=== PATIENT | male | born 1975 | race Caucasian/White ===

== ENCOUNTER 2018-08-01 15:40 | Inpatient (IN) ==
[2018-08-01] MEDS ORDERED: Morphine Inj 4 MG/ML Vial ONE (15:50)
[2018-08-01] MEDS ORDERED: HYDROmorphone PF Inj 1 MG/ML Ampul ONE (16:01)
[2018-08-01 16:08] LABS: Baso # (Auto) 0.1 th/mm3 (0.0-0.2); Eos # (Auto) 0.6 th/mm3 (0.0-0.4); Eos % (Auto) 4.6 % (0.0-4.0); Hematocrit 46.4 % (39.0-51.0); Hemoglobin 15.8 gm/dL (13.0-17.0); Lymph % (Auto) 24.1 % (9.0-44.0); Mean Corpuscular HGB Conc 33.9 % (32.0-36.0); Mean Corpuscular Hemoglobin 30.9 pg (27.0-34.0); Mean Corpuscular Volume 91.1 fL (80.0-100.0); Mean Platelet Volume 7.6 fL (7.0-11.0); Mono # (Auto) 0.7 th/mm3 (0.0-0.9); Mono % (Auto) 5.8 % (0.0-8.0); Neut # (Auto) 7.9 th/mm3 (1.8-7.7); Neut % (Auto) 64.5 % (16.0-70.0); Platelet Count 358 th/mm3 (150-450); Red Cell Distribution Width 14.4 % (11.6-17.2); White Blood Count 12.3 th/mm3 (4.0-11.0)
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
[2018-08-01 16:22] LABS: Activated Partial Thrombo Time 23.1 sec (23.4-31.7); Prothrombin Time 10.2 sec (9.8-11.6)
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
[2018-08-01] MEDS ORDERED: fentaNYL Citrate Inj 100 MCG/2 ML Ampul ONE ×2 (16:36→16:56)
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
[2018-08-01] MEDS ORDERED: Lidocaine PF 1% Inj 30 ML Vial ONE (16:54)
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
[2018-08-01] MEDS: HYDROmorphone PF Inj 1 MG/ML Ampul IV.PUSH PRN (20:45)
[2018-08-01] MEDS: Senna/Docusate Sodium 8.6/50 MG Tablet PO SCH (21:00)
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
[2018-08-01] MEDS: Multivitamin Inj 10 ML, Thiamine Inj 100 MG, Folic Acid Inj 1 MG in Sodium Chlor 0.9% I... IV.SIG SCH (21:25)
[2018-08-01] MEDS: Pantoprazole Inj 40 MG Vial IV.PUSH SCH (21:34)
[2018-08-01] MEDS: Sod Chloride 0.9% Inj 1,000 ML IV.CONT SCH (21:38)
[2018-08-01] MEDS: Methocarbamol 500 MG Tablet PO SCH (22:00)
[2018-08-02] MEDS: HYDROmorphone PF Inj 1 MG/ML Ampul IV.PUSH PRN ×6 (02:10→22:26)
[2018-08-02] MEDS ORDERED: Chlorhexidine Gluconate 2% 1 Pack (2 Cloths) TOPICAL PRN (04:00)
[2018-08-02] MEDS: Chlorhexidine Gluconate 2% 1 Pack (2 Cloths) TOPICAL SCH (04:04)
[2018-08-02] MEDS: Sod Chloride 0.9% Inj 1,000 ML IV.CONT SCH ×3 (04:04→20:02)
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
[2018-08-02] MEDS: Methocarbamol 500 MG Tablet PO SCH ×3 (06:23→22:26)
[2018-08-02 06:32] LABS: Baso % (Auto) 0.3 % (0.0-2.0); Eos # (Auto) 0.1 th/mm3 (0.0-0.4); Eos % (Auto) 1.1 % (0.0-4.0); Hematocrit 41.8 % (39.0-51.0); Hemoglobin 14.2 gm/dL (13.0-17.0); Lymph # (Auto) 1.2 th/mm3 (1.0-4.8); Lymph % (Auto) 11.1 % (9.0-44.0); Mean Corpuscular HGB Conc 33.9 % (32.0-36.0); Mean Corpuscular Hemoglobin 30.7 pg (27.0-34.0); Mean Corpuscular Volume 90.4 fL (80.0-100.0); Mean Platelet Volume 7.7 fL (7.0-11.0); Mono % (Auto) 8.7 % (0.0-8.0); Neut # (Auto) 8.7 th/mm3 (1.8-7.7); Neut % (Auto) 78.8 % (16.0-70.0); Platelet Count 268 th/mm3 (150-450); Red Blood Count 4.62 mil/mm3 (4.50-5.90); Red Cell Distribution Width 14.1 % (11.6-17.2)
[2018-08-02 06:58] LABS: Albumin 3.1 g/dL (3.4-5.0); Anion Gap 5 meq/L (5-15); Aspartate Aminotransferase 140 U/L (15-37); Blood Urea Nitrogen 12 mg/dL (7-18); Calcium 8.1 mg/dL (8.5-10.1); Carbon Dioxide 26.6 meq/L (21.0-32.0); Chloride 107 meq/L (98-107); Glomerular Filtration Rate Greater Than 89 mL/min (>89); Glucose,Random 102 mg/dL (74-106); Potassium 4.1 meq/L (3.5-5.1); Sodium 139 meq/L (136-145)
[2018-08-02 07:01] LABS: Alanine Aminotransferase 164 U/L (12-78); Alkaline Phosphatase 90 U/L (45-117)
[2018-08-02] MEDS: Lidocaine 5% Patch T-DERMAL SCH (09:33)
[2018-08-02] MEDS: Senna/Docusate Sodium 8.6/50 MG Tablet PO SCH ×2 (09:33→20:01)
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
[2018-08-02] MEDS: Pantoprazole Inj 40 MG Vial IV.PUSH SCH (19:56)
[2018-08-02] MEDS: Multivitamin Inj 10 ML, Thiamine Inj 100 MG, Folic Acid Inj 1 MG in Sodium Chlor 0.9% I... IV.SIG SCH (19:56)
[2018-08-03] MEDS: Sod Chloride 0.9% Inj 1,000 ML IV.CONT SCH ×3 (00:11→20:11)
[2018-08-03] MEDS: HYDROmorphone PF Inj 1 MG/ML Ampul IV.PUSH PRN ×5 (02:36→20:50)
[2018-08-03] MEDS: Chlorhexidine Gluconate 2% 1 Pack (2 Cloths) TOPICAL SCH (04:00)
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
[2018-08-03 05:11] LABS: Baso % (Auto) 0.3 % (0.0-2.0); Eos # (Auto) 0.1 th/mm3 (0.0-0.4); Hematocrit 39.4 % (39.0-51.0); Hemoglobin 13.6 gm/dL (13.0-17.0); Lymph # (Auto) 1.1 th/mm3 (1.0-4.8); Lymph % (Auto) 7.7 % (9.0-44.0); Mean Corpuscular HGB Conc 34.5 % (32.0-36.0); Mean Corpuscular Hemoglobin 30.9 pg (27.0-34.0); Mean Corpuscular Volume 89.4 fL (80.0-100.0); Mean Platelet Volume 7.9 fL (7.0-11.0); Mono # (Auto) 0.9 th/mm3 (0.0-0.9); Mono % (Auto) 6.6 % (0.0-8.0); Neut % (Auto) 84.4 % (16.0-70.0); Platelet Count 254 th/mm3 (150-450); Red Cell Distribution Width 13.7 % (11.6-17.2); White Blood Count 14.2 th/mm3 (4.0-11.0)
[2018-08-03 05:44] LABS: Alanine Aminotransferase 114 U/L (12-78); Albumin 2.8 g/dL (3.4-5.0); Anion Gap 7 meq/L (5-15); Aspartate Aminotransferase 68 U/L (15-37); Blood Urea Nitrogen 11 mg/dL (7-18); Calcium 7.8 mg/dL (8.5-10.1); Carbon Dioxide 26.4 meq/L (21.0-32.0); Chloride 104 meq/L (98-107); Glomerular Filtration Rate Greater Than 89 mL/min (>89); Glucose,Random 106 mg/dL (74-106); Potassium 3.8 meq/L (3.5-5.1); Sodium 137 meq/L (136-145)
[2018-08-03 05:46] LABS: Alkaline Phosphatase 85 U/L (45-117); Total Protein 6.8 g/dL (6.4-8.2)
[2018-08-03] MEDS: Methocarbamol 500 MG Tablet PO SCH ×3 (05:50→23:05)
[2018-08-03] MEDS: Senna/Docusate Sodium 8.6/50 MG Tablet PO SCH ×2 (08:20→20:11)
[2018-08-03] MEDS: Lidocaine 5% Patch T-DERMAL SCH (08:20)
[2018-08-03] MEDS: Enoxaparin Inj 40 MG/0.4 ML Syringe SQ SCH (11:57)
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
[2018-08-03] MEDS ORDERED: diazePAM 2 MG Tablet PO ONE (13:56)
[2018-08-03] MEDS: Pantoprazole Inj 40 MG Vial IV.PUSH SCH (20:11)
[2018-08-03] MEDS: Multivitamin Inj 10 ML, Thiamine Inj 100 MG, Folic Acid Inj 1 MG in Sodium Chlor 0.9% I... IV.SIG SCH (20:22)
[2018-08-04] MEDS: HYDROmorphone PF Inj 1 MG/ML Ampul IV.PUSH PRN ×3 (01:52→15:35)
[2018-08-04] MEDS: Chlorhexidine Gluconate 2% 1 Pack (2 Cloths) TOPICAL SCH (03:59)
[2018-08-04 04:18] LABS: Baso # (Auto) 0.1 th/mm3 (0.0-0.2); Baso % (Auto) 0.4 % (0.0-2.0); Eos # (Auto) 0.2 th/mm3 (0.0-0.4); Eos % (Auto) 1.6 % (0.0-4.0); Hematocrit 37.7 % (39.0-51.0); Hemoglobin 12.8 gm/dL (13.0-17.0); Lymph # (Auto) 1.5 th/mm3 (1.0-4.8); Lymph % (Auto) 11.5 % (9.0-44.0); Mean Corpuscular HGB Conc 33.9 % (32.0-36.0); Mean Corpuscular Hemoglobin 30.4 pg (27.0-34.0); Mean Corpuscular Volume 89.7 fL (80.0-100.0); Mean Platelet Volume 7.7 fL (7.0-11.0); Mono # (Auto) 1.1 th/mm3 (0.0-0.9); Mono % (Auto) 8.3 % (0.0-8.0); Neut # (Auto) 10.3 th/mm3 (1.8-7.7); Neut % (Auto) 78.2 % (16.0-70.0); Platelet Count 241 th/mm3 (150-450); White Blood Count 13.1 th/mm3 (4.0-11.0)
[2018-08-04 04:36] LABS: Alanine Aminotransferase 79 U/L (12-78); Albumin 2.7 g/dL (3.4-5.0); Anion Gap 6 meq/L (5-15); Aspartate Aminotransferase 47 U/L (15-37); Blood Urea Nitrogen 9 mg/dL (7-18); Calcium 7.9 mg/dL (8.5-10.1); Carbon Dioxide 27.3 meq/L (21.0-32.0); Chloride 102 meq/L (98-107); Glomerular Filtration Rate Greater Than 89 mL/min (>89); Glucose,Random 110 mg/dL (74-106); Potassium 3.7 meq/L (3.5-5.1); Sodium 135 meq/L (136-145)
[2018-08-04 04:39] LABS: Alkaline Phosphatase 79 U/L (45-117)
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
[2018-08-04] MEDS: Methocarbamol 500 MG Tablet PO SCH ×3 (05:47→21:02)
[2018-08-04] MEDS: Sod Chloride 0.9% Inj 1,000 ML IV.CONT SCH (05:57)
[2018-08-04] MEDS: Lidocaine 5% Patch T-DERMAL SCH (09:53)
[2018-08-04] MEDS: Enoxaparin Inj 40 MG/0.4 ML Syringe SQ SCH (09:53)
[2018-08-04] MEDS: Senna/Docusate Sodium 8.6/50 MG Tablet PO SCH ×2 (09:53→20:11)
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
[2018-08-04 21:07] VITALS: TEMP 99
[2018-08-05 00:17] VITALS: O2SAT 95
[2018-08-05] MEDS: Chlorhexidine Gluconate 2% 1 Pack (2 Cloths) TOPICAL SCH (03:31)
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
[2018-08-05 04:32] VITALS: PULSE 101
[2018-08-05 04:34] VITALS: BP 142/73
[2018-08-05] MEDS: Methocarbamol 500 MG Tablet PO SCH (05:01)
[2018-08-05] MEDS: Enoxaparin Inj 40 MG/0.4 ML Syringe SQ SCH (08:56)
[2018-08-05] MEDS: Senna/Docusate Sodium 8.6/50 MG Tablet PO SCH (08:57)
[2018-08-05] MEDS: Lidocaine 5% Patch T-DERMAL SCH (08:57)
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
--- NOTE | 2018-08-05 13:24 | XR ---
EXAM DATE: 08/05/2018 12:35 PM EST AGE/SEX: 43 years / Male INDICATIONS: Post chest tube removal from right chest CLINICAL DATA: This is the patient's subsequent encounter. Patient reports that signs and symptoms h ave been present for 4 - 6 days and indicates a pain score of 2/10. MEDICAL/SURGICAL HISTORY: . bilateral pneumothorax, rib fractures, pelvis fracture Chest tube, right. Chest tube, left. COMPARISON: [facility] [place] 1V SINGLE AP, 08/05/2018. . FINDINGS: The small right chest tube has been removed. No recurrent pneumothorax is noted. Minimal bibasilar at electasis is noted. The heart is stable. CONCLUSION: 1. No recurrent pneumothorax status post chest tube removal. 2. Minimal bibasilar atelectasis. Electronically signed by: Tyree Sneed MD Board Certified Radiologist 08/05/2018 1:23 PM EST
[2018-08-05 18:41] VITALS: RESP 20
== END 2018-08-05 14:50 | disposition home or self-care (01) ==
LOC: NEPI 15:40 → NEDA 16:40 → N03 17:41 → NEDA 18:02
PROVIDERS: ADMIT Surgery; ATTEND Surgery